=== PATIENT | male | born 1965 | race Two or more races ===

== ENCOUNTER 2025-04-05 09:30 | Emergency (ER) | payer OTHER ==
[~2025-04-05] VITALS: Ht 180.3 cm; Wt 79.4 kg
[2025-04-05] MEDS ORDERED: PANTOPRAZOLE SO40 M2 PO (10:25)
[2025-04-05] MEDS ORDERED: FAMOTIDINE40 MG PO (10:25)
[2025-04-05] MEDS ORDERED: 0.9 % SODIUM CHLORIDE 1,000 ML IV STA (10:39)
[2025-04-05] MEDS ORDERED: FAMOTIDINE/PF 20 MG in 0.9 % SODIUM CHLORIDE 8 ML IV PUSH STA (10:40)
[2025-04-05] MEDS ORDERED: FAMOTIDINE/PF 20 MG/2 ML VIAL ONE (10:41)
[2025-04-05 11:55] LABS: BASO % 0.3 % (0.1-1.2); EOS # 0.05 (0.04-0.54); EOS % 0.8 % (0.7-7.0); HEMATOCRIT 41.7 % (40.1-51.0); HEMOGLOBIN 13.9 g/dL (13.7-17.5); LYMPH # 1.55 (1.18-3.74); LYMPH % 24.7 % (19.3-53.1); MEAN CORPUSCULAR HEMOGLOBIN 26.9 pg (25.6-32.2); NEUT # 4.14 (1.56-6.13); NEUT % 65.9 % (34.0-71.1); PLATELET COUNT 354 K/uL (163-369); RED BLOOD COUNT 5.16 M/uL (4.63-6.08); RED CELL DISTRIBUTION WIDTH 13.2 % (11.6-14.4)
[2025-04-05 12:01] LABS: URINE APPEARANCE Clear; URINE BILIRRUBIN Negative (NEGATIVE); URINE BLOOD Negative; URINE COLOR Yellow; URINE GLUCOSE Negative (NEGATIVE); URINE KETONE Trace (NEGATIVE); URINE LEUKOCYTE Negative; URINE NITRATE Negative; URINE PROTEIN Negative (NEGATIVE); URINE UROBILINOGEN 0.2 E.U./dl
[2025-04-05 12:02] LABS: URINE EPITHELIAL CELLS 2.2 uL (0.0-38.8); URINE WBC 3.1 uL (0.0-23.2)
[2025-04-05 12:06] LABS: URINE BACTERIA 3.6 uL (0.0-1933); URINE CAST 0.29 uL (0.0-1.40); URINE RBC 1.9 uL (0.0-20.8)
[2025-04-05 12:21] LABS: CALCIUM 8.4 mg/dL (8.5-10.1); CREATININE SERUM 1.04 mg/dL (0.70-1.30); GFR 73.1; POTASSIUM 3.88 mEq/L (3.5-5.1)
[2025-04-05] MEDS ORDERED: KETOROLAC TROMETHAMINE 30 MG VIAL ONE (13:25)
[2025-04-05] MEDS ORDERED: METRONIDAZOLE/SODIUM CHLORIDE 500 MG/100 ML PIGGYBACK IV ONE ×2 (13:25→13:30)
[2025-04-05] MEDS ORDERED: CIPROFLOXACIN IN 5 % DEXTROSE 400 MG/200 ML PIGGYBAG IV ONE ×2 (13:25→13:30)
[2025-04-05] MEDS ORDERED: KETOROLAC TROMETHAMINE 30 MG VIAL IV ONE (13:30)
[2025-04-05] MEDS ORDERED: MORPHINE SULFATE 4 MG/ML VIAL IV ONE (15:30)
[2025-04-05] MEDS ORDERED: ORPHENADRINE CITRATE 30 MG/ML AMPUL IV ONE (15:30)
[2025-04-05] MEDS ORDERED: ORPHENADRINE CITRATE 30 MG/ML AMPUL ONE (16:04)
== END 2025-04-05 17:15 | disposition home or self-care (01) ==
LOC: ER 10:15
PROVIDERS: Emergency Medicine
DX: K52.9 Noninfective gastroenteritis and colitis, unspecified (principal)